=== PATIENT | male | born 1955 | race American Indian/Alaskan Native ===

== ENCOUNTER 2016-07-16 21:30 | Inpatient (IN) | payer OTHER ==
[2016-07-16] MEDS ORDERED: ASPIRIN PO ONE (21:39)
--- NOTE | 2016-07-16 21:44 | Emergency Department Report ---
ED Syncope HPI - General Stated Complaint: SEIZURE Time Seen by Provider: 07/16/16 21:36 - History of Present Illness Initial Comments: This is a pleasant 60-year-old gentleman brought in by EMS. He apparently had a syncopal episode while at the bar. He states he had too many to drink. The patient has no complaints otherwise at this point. Patient states he does have a seizure disorder. [facility]'s bystanders did indicate the patient did have some slight jerking movements when he was passing out. He was caught by a bystander. It helps gently to the floor. He was out for about 1-2 minutes according to bystanders. After coming back to he was alert and appropriate right away according to bystanders as well. States last seizure he had was approximately 8 years ago. He is not on any anti-epileptic medications. Patient does endorse a cardiac history. He denies ever having heart attack however. EMS do have ECG that questions whether there could be an anterior STEMI. Again patient has no chest Complaints whatsoever. - Related Data Allergies/Adverse Reactions: Allergies No Known Allergies Allergy (Verified 07/16/16 21:39) Home Medications: Ambulatory Orders No Known Home Medications [No Reported Home Medications] 07/16/16 ED Review of Systems ROS: Stated complaint: SEIZURE Other details as noted in HPI Comment: All other systems reviewed and negative Constitutional: denies: chills, fever Eyes: denies: eye pain, eye discharge, vision change ENT: denies: ear pain, throat pain Respiratory: denies: cough, shortness of breath, wheezing Cardiovascular: denies: chest pain, palpitations Endocrine: no symptoms reported Gastrointestinal: denies: abdominal pain, nausea, diarrhea Genitourinary: denies: urgency, dysuria Musculoskeletal: denies: back pain, joint swelling, arthralgia Skin: denies: rash, lesions Neurological: denies: headache, weakness, paresthesias Psychiatric: denies: anxiety, depression Hematological/Lymphatic: denies: easy bleeding, easy bruising ED Past Medical Hx - Past Medical History Previous Medical History?: Yes Hx Seizures: Yes (not taking meds) - Medications Home Medications: Home Medications Medication Instructions Recorded Confirmed Last Taken Type No Known Home Medications [No 07/16/16 07/16/16 Unknown History Reported Home Medications] ED Physical Exam - General Limitations: Altered Mental Status General appearance: alert, in no apparent distress - Head Head exam: Present: atraumatic, normocephalic - Eye Eye exam: Present: normal appearance, EOMI. Absent: scleral icterus - ENT ENT exam: Present: normal exam, mucous membranes moist, other - Neck Neck exam: Present: normal inspection, full ROM (no oral lesions. No tongue lesions.). Absent: tenderness, meningismus, lymphadenopathy - Respiratory Respiratory exam: Present: normal lung sounds bilaterally. Absent: respiratory distress, wheezes, rales - Cardiovascular Cardiovascular Exam: Present: regular rate, normal rhythm. Absent: systolic murmur, diastolic murmur, rubs, gallop - GI/Abdominal GI/Abdominal exam: Present: soft, normal bowel sounds. Absent: tenderness, guarding - Rectal Rectal exam: Present: deferred - Extremities Exam Extremities exam: Present: normal inspection. Absent: tenderness - Back Exam Back exam: Present: normal inspection. Absent: CVA tenderness (R), CVA tenderness (L), vertebral tenderness - Neurological Exam Neurological exam: Present: alert, oriented X3, other - Psychiatric Psychiatric exam: Present: normal affect, normal mood - Skin Skin exam: Present: warm, dry, intact, normal color. Absent: rash ED Course Vital Signs 07/16/16 07/16/16 07/16/16 21:34 21:40 21:42 Temperature 97.6 F 97.6 F 97.6 F Pulse Rate 82 82 81 Respiratory 18 18 Rate Blood Pressure 154/83 Blood Pressure 154/83 [Left] Blood Pressure 152/83 [Right] O2 Sat by Pulse 95 95 95 Oximetry 07/16/16 22:46 Temperature Pulse Rate Respiratory 20 Rate Blood Pressure Blood Pressure [Left] Blood Pressure [Right] O2 Sat by Pulse 99 Oximetry - Reevaluation(s) Reevaluation #1: 07/16/16 21:54 ECG at 2132 with sinus rhythm at 79 bpm with a normal CA noted QRS is noted as well. Normal axis is noted. Does have some anterior ST elevation in V2 V3 without reciprocal change. This is somewhat J-point in nature as well. No ECG to compare to. Reevaluation #2: 07/16/16 23:23 Labs are unremarkable in general. Alcohol is elevated 0.11. Brother is at the bedside. Patient in no distress. He states he feels very comfortable. He has no chest pain. Brother states that the baby brother brother states that the patient is acting at his baseline. The brother endorses more of a seizure presentation. Is not clear to me exactly what the ultimate initial presentation was though the patient did not have any postictal phase. Apparently. I did speak with Dr. Greene regarding the abnormal ECG. His suggestion was to keep the patient in the hospital continue enzymes and stress in the morning. I feel this is appropriate as well as patient has no chest pain at this time it doesn't seem like cardiac or patient at this time. I did speak with hospitalist for admission. ED Medical Decision Making - Lab Data Result diagrams: 07/16/16 21:54 07/16/16 21:54 - Radiology Data interpreted by me: negative Critical care attestation.: If time is entered above; I have spent that time in minutes in the direct care of this critically ill patient, excluding procedure time. ED Disposition Clinical Impression: Seizure Syncope Qualifiers: Syncope type: unspecified Qualified Code(s): R55 - Syncope and collapse Disposition: OP ADMITTED IP TO THIS HOSP Is pt being admited?: Yes Does the pt Need Aspirin: No Condition: Stable Instructions: Syncope (ED) Time of Disposition: 23:22
[2016-07-16 22:25] LABS: Basophils % (Auto) 0.9 % (0.0-1.8); Eosinophils % (Auto) 1.6 % (0.0-4.3); Hematocrit 45.1 % (35.5-45.6); Hemoglobin 14.6 gm/dl (11.8-15.2); Mean Corpuscular HGB Conc 32 % (32-34); Mean Corpuscular Hemoglobin 26 pg (28-32); Mean Corpuscular Volume 82 fl (84-94); Platelet Count 195 K/mm3 (140-440); Red Blood Count 5.51 M/mm3 (3.65-5.03); White Blood Count 6.7 K/mm3 (4.5-11.0)
[2016-07-16 22:29] LABS: Alanine Aminotransferase 26 units/L (7-56); Albumin/Globulin Ratio 1.1 %; Alkaline Phosphatase 79 units/L (35-129); BUN/Creatinine Ratio 7.14; Bilirubin,Total 0.2 mg/dL (0.1-1.2); Blood Urea Nitrogen 10 mg/dL (9-20); Calcium 9.2 mg/dL (8.4-10.2); Carbon Dioxide 23 mmol/L (22-30); Glucose 108 mg/dL (75-100); Total Protein 7.7 g/dL (6.3-8.2)
[2016-07-16 22:30] LABS: Anion Gap 20 mmol/L; Chloride 100.3 mmol/L (98-107); Potassium 3.3 mmol/L (3.6-5.0); Sodium 140 mmol/L (137-145)
--- NOTE | 2016-07-16 23:58 | History and Physical Report ---
History of Present Illness Date of examination: 07/16/16 History of present illness: 60 year old man history of hypertension comes emergency room because while he was standing , drinking tonight, he had a syncopal episode. It's unclear how long it lasted for. Per the emergency room physician, the brother states that the patient had some jerking movements. Patient denies chest pain, palpitation, shortness of breath, cough, abdominal pain, hematochezia, dysuria, frequency, focal weakness, dysarthria, fever chills , polydipsia polyuria, hot or cold intolerance, easy bruisability, or rash or bleeding from mucosal membrane, rhinorrhea, epistaxis, earache, tinnitus, blurry vision, eye discharge, anxiety, depression. Other review of systems negative PAST SURGICAL HISTORY: None SOCIAL HISTORY: Smoke a pack a day, drinks 6 beers a day, no drugs FAMILY HISTORY:Hypertension Medications and Allergies Allergies Allergy/AdvReac Type Severity Reaction Status Date / Time No Known Allergies Allergy Verified 07/16/16 21:39 Home Medications Medication Instructions Recorded Confirmed Last Taken Type Metoprolol [Lopressor TAB] 25 mg PO BID #30 tablet 07/17/16 Unknown Rx Acetaminophen [Acetaminophen TAB] 325 mg PO Q4H PRN #30 tablet 07/18/16 Unknown Rx Carvedilol [Coreg] 25 mg PO BID tablet 07/18/16 Unknown Rx Famotidine [Pepcid] 20 mg PO QDAY #30 tablet 07/18/16 Unknown Rx Folic Acid [Folvite] 1 mg PO DAILY #30 tablet 07/18/16 Unknown Rx Multivitamin Tab [Multiple Vitamin 1 each PO DAILY #30 tablet 07/18/16 Unknown Rx TAB (Theragran)] Thiamine [Vitamin B-1] 100 mg PO QDAY #30 tablet 07/18/16 Unknown Rx hydrALAZINE [Apresoline TAB] 50 mg PO BID #60 tablet 07/18/16 Unknown Rx Exam - Physical Exam Narrative exam: Gen. appearance: Patient lying in bed, no apparent distress HEENT: Normocephalic, atraumatic, pupils equally round and reactive to light, extraocular movement intact, and no sclericterus,. No JVD or thyromegaly or nodule,neck supple, no carotid bruit ,mucous membranes moist, no exudate or erythema Heart: S1, S2, regular rate and rhythm Lungs: Clear to auscultation bilaterally, breathing comfortable Abdomen: Positive bowel sounds, nontender, nondistended, no organomegaly Extremity: No edema, cyanosis, clubbing Skin: No rash, nodules, warm, dry Neuro: Oriented 3, cranial nerves II-12 intact, speech is fluent, motor and sensory intact - Constitutional Vitals: Temp Pulse Resp BP Pulse Ox 97.6 F 81 20 152/83 99 07/16/16 21:42 07/16/16 21:42 07/16/16 22:46 07/16/16 21:42 07/16/16 22:46 Results - Labs CBC & Chem 7: 07/18/16 03:43 07/18/16 03:43 Labs: Abnormal lab results 07/16/16 07/16/16 07/16/16 Range/Units 21:54 21:54 21:54 RBC 5.51 H (3.65-5.03) M/mm3 MCV 82 L (84-94) fl MCH 26 L (28-32) pg RDW 16.0 H (13.2-15.2) % Lymph % (Auto) 41.1 H (13.4-35.0) % [place] % (Auto) 8.9 H (0.0-7.3) % Potassium 3.3 L (3.6-5.0) mmol/L Glucose 108 H (75-100) mg/dL Plasma/Serum Alcohol 0.11 H (0-0.07) gm% - Imaging and Cardiology EKG: image reviewed Chest x-ray: image reviewed Assessment and Plan Syncope vs EKG seizure with abnormal ekg Hypertension Alcohol abuse Admit to medicine Check cardiac enzymes, d-dimer, consult cardiolgy Start ativan as needed for seizure Start dvt prophalaxis
[2016-07-16] MEDS ORDERED: TYLENOL PO PRN (23:59)
[2016-07-16] MEDS ORDERED: MILK OF MAGNESIA PO PRN (23:59)
[2016-07-16] MEDS ORDERED: ZOFRAN IV PRN (23:59)
[2016-07-16] MEDS ORDERED: DULCOLAX PR PRN (23:59)
[2016-07-17] MEDS ORDERED: ATIVAN IV PRN (00:26)
[2016-07-17 00:59] LABS: Creatine Kinase MB 3.6 ng/mL (0.0-4.0)
[2016-07-17 01:01] LABS: Creatine Kinase 192 units/L (55-170)
[2016-07-17 06:17] LABS: Creatine Kinase MB 3.6 ng/mL (0.0-4.0)
[2016-07-17 06:18] LABS: Creatine Kinase 193 units/L (55-170)
--- NOTE | 2016-07-17 09:49 | XRay Report ---
AP CHEST: HISTORY: chest pain AP view of the chest demonstrates a normal mediastinal and cardiac contour with clear lungs. Moderate to severe dextroscoliosis of the thoracic spine is noted. No acute bony abnormality. IMPRESSION: No acute process. Scoliosis.
[2016-07-17] MEDS ORDERED: APRESOLINE IV ONE (10:22)
--- NOTE | 2016-07-17 10:25 | Discharge Summary ---
Providers - Providers Date of Admission: 07/16/16 23:54 Date of discharge: 07/17/16 Attending physician: GIOVANNI AC MD 07/16/16 23:59 Consult to Physician [CONS] Routine Consulting Provider: BREEZY NGUYỄN Reason For Exam: syncope Place consult to:: Dr. Nguyễn Notified:: Tanya HARRINGTON Phone number called:: Was contact made?: Yes If yes, spoke with:: [facility] Time called:: 08:03 Primary care physician: CHIEF CLERK SHELTER Hospitalization Condition: Stable Exam - Constitutional Vitals: Temp Pulse Resp BP Pulse Ox 98.2 F 78 18 212/118 94 07/17/16 08:00 07/17/16 08:00 07/17/16 08:00 07/17/16 08:00 07/17/16 08:00 Plan Activity: no driving until cleared by PCP (according to [place] state law. needs to be evaluated by Neurologist before driving. MUST BE SEIZURE FREE FOR 6 MONTHS), fall precautions Diet: low salt Special Instructions: record daily BP diary Additional Instructions: must avoid etoh. must enroll in an etoh treatment program Follow up with: KYAW NGUYỄN MD [Staff Physician] - 7 Days PRIMARY CARE, [Primary Care Provider] - 3-5 Days MEGHNA LARSEN MD [Staff Physician] - 7 Days Prescriptions: Metoprolol [Lopressor TAB] 25 mg PO BID #30 tablet
[2016-07-17] MEDS: LOVENOX SUB-Q SCH (10:41)
[2016-07-17] MEDS ORDERED: LOPRESSOR PO SCH (11:00)
--- NOTE | 2016-07-17 12:45 | Consultation ---
History of Present Illness Consult date: 07/17/16 Medications and Allergies Allergies Allergy/AdvReac Type Severity Reaction Status Date / Time No Known Allergies Allergy Verified 07/16/16 21:39 Home Medications Medication Instructions Recorded Confirmed Last Taken Type Metoprolol [Lopressor TAB] 25 mg PO BID #30 tablet 07/17/16 Unknown Rx Active Meds: Active Medications Acetaminophen (Tylenol) 650 mg PO Q4H PRN PRN Reason: Pain MILD(1-3)/Fever >100.5/GASPAR Bisacodyl (Dulcolax) 10 mg CO QDAY PRN PRN Reason: Constipation unrelieved by MOM Carvedilol (Coreg) 25 mg PO BID MARIAH Enoxaparin Sodium (Lovenox) 40 mg SUB-Q QDAY MARIAH Last Admin: 07/17/16 10:41 Dose: 40 mg Nicardipine/Sodium Chloride (Cardene Drip 40 Mg/200 Ml) 40 mg in 200 mls @ 25 mls/hr IV TITR MARIAH; 5 MG/HR PRN Reason: Protocol Folic Acid 1 mg/ Multivitamins /Minerals 10 ml/ Thiamine HCl 100 mg/ Sodium Chloride 1,000 mls @ 125 mls/hr IV .BY DURATION MARIAH Sodium Chloride (Nacl 0.9% 1000 Ml) 1,000 mls @ 125 mls/hr IV .BY DURATION MARIAH Lorazepam (Ativan) 2 mg IV Q4H PRN PRN Reason: Seizures Magnesium Hydroxide (Milk Of Magnesia) 30 ml PO Q4H PRN PRN Reason: Constipation Ondansetron HCl (Zofran) 4 mg IV Q8H PRN PRN Reason: N/V unrelieved by Reglan Potassium Chloride (K-Dur) 40 meq PO ONCE ONE Stop: 07/17/16 13:01 Physical Examination Vital Signs Temp Pulse BP Pulse Ox 97.6 F 82 154/83 95 07/16/16 21:34 07/16/16 21:34 07/16/16 21:34 07/16/16 21:34 Results 07/16/16 21:54 07/16/16 21:54 Cardiac Enzymes 07/17/16 07/17/16 Range/Units 00:22 05:20 CK-MB (CK-2) 3.6 3.6 (0.0-4.0) ng/mL Assessment and Plan Detailed Cardiology consult dictated.
[2016-07-17] MEDS ORDERED: K-DUR PO ONE (13:00)
[2016-07-17] MEDS ORDERED: CARDENE DRIP 40 MG/200 ML 40 MG/200 ML BAG IV SCH (13:00)
[2016-07-17] MEDS: COREG PO SCH ×2 (13:06→22:48)
[2016-07-17] MEDS: 1: FOLVITE 1 MG, INFUVITE 10 ML, VITAMIN B-1 100 MG in NACL 0.9% 1000 ML 988.8 ML 2: NA IV SCH ×2 (13:37→22:30)
--- NOTE | 2016-07-17 16:29 | Progress Note ---
Assessment and Plan Assessment and plan: 60 year old man history of hypertension comes emergency room because while he was standing, drinking tonight, he had a syncopal episode. It's unclear how long it lasted for. Per the emergency room physician, the brother states that the patient had some jerking movements. Patient was noted to have elevated BP and not responding despite multiple treatment for BP requiring transfer to [facility]. * Hypertensive emergency * Alcohol abuse * Alcohol withdrawal syndrom * Hypokalemia * Microcytosis Plan: * Transfer to ICU for cardene drip * start CIWA protocol * Replace electrolytes * seizure precautions * DVT/GI prophylaxis * Extensive counselling provided for etoh cessation, 15 mins spent on counselling, patient verbalized understanding * Intensivit consult * Plan discussed with patient, and care team. * critical care time 35 mins. History Interval history: Patient seen and examined in no acute distress. showing some signs of mild withdrawal. denies any chest pain, nausea, vomiting. Hospitalist Physical - Physical exam Narrative exam: VITAL SIGNS: Reviewed. GENERAL: The patient appeared well nourished and normally developed. Vital signs as documented. HEAD: No signs of head trauma. EYES: Pupils are equal. Extraocular motions intact. EARS: Hearing grossly intact. MOUTH: Oropharynx is normal. NECK: No adenopathy, no JVD. CHEST: Chest with clear breath sounds bilaterally. No wheezes, rales, or rhonchi. CARDIAC: Regular rate and rhythm. S1 and S2, without murmurs, gallops, or rubs. VASCULAR: No Edema. Peripheral pulses normal and equal in all extremities. ABDOMEN: Soft, without detectable tenderness. No sign of distention. No rebound or guarding, and no masses palpated. Bowel Sounds normal. MUSCULOSKELETAL: Good range of motion of all major joints. Extremities without clubbing, cyanosis or edema. NEUROLOGIC EXAM: Alert and oriented x 3. fine tremor, No focal sensory or strength deficits. Speech normal. Follows commands. PSYCHIATRIC: Mood normal. SKIN: No rash or lesions. - Constitutional Vitals: Temp Pulse Resp BP Pulse Ox 98.3 F 87 20 160/93 95 07/17/16 15:30 07/17/16 15:30 07/17/16 15:30 07/17/16 15:30 07/17/16 15:30 Results - Labs CBC & Chem 7: 07/16/16 21:54 07/16/16 21:54 Labs: Laboratory Last Values WBC 6.7 K/mm3 (4.5-11.0) 07/16/16 21:54 RBC 5.51 M/mm3 (3.65-5.03) H 07/16/16 21:54 Hgb 14.6 gm/dl (11.8-15.2) 07/16/16 21:54 Hct 45.1 % (35.5-45.6) 07/16/16 21:54 MCV 82 fl (84-94) L 07/16/16 21:54 MCH 26 pg (28-32) L 07/16/16 21:54 MCHC 32 % (32-34) 07/16/16 21:54 RDW 16.0 % (13.2-15.2) H 07/16/16 21:54 Plt Count 195 K/mm3 (140-440) 07/16/16 21:54 Lymph % (Auto) 41.1 % (13.4-35.0) H 07/16/16 21:54 [place] % (Auto) 8.9 % (0.0-7.3) H 07/16/16 21:54 Eos % (Auto) 1.6 % (0.0-4.3) 07/16/16 21:54 Baso % (Auto) 0.9 % (0.0-1.8) 07/16/16 21:54 Lymph # 2.8 K/mm3 (1.2-5.4) 07/16/16 21:54 [place] # 0.6 K/mm3 (0.0-0.8) 07/16/16 21:54 Eos # 0.1 K/mm3 (0.0-0.4) 07/16/16 21:54 Baso # 0.1 K/mm3 (0.0-0.1) 07/16/16 21:54 Seg Neutrophils % 47.5 % (40.0-70.0) 07/16/16 21:54 Seg Neutrophils # 3.2 K/mm3 (1.8-7.7) 07/16/16 21:54 D-Dimer < 135 ng/mlDDU (0-234) 07/17/16 00:22 Sodium 140 mmol/L (137-145) 07/16/16 21:54 Potassium 3.3 mmol/L (3.6-5.0) L 07/16/16 21:54 Chloride 100.3 mmol/L (98-107) 07/16/16 21:54 Carbon Dioxide 23 mmol/L (22-30) 07/16/16 21:54 Anion Gap 20 mmol/L 07/16/16 21:54 BUN 10 mg/dL (9-20) 07/16/16 21:54 Creatinine 1.4 mg/dL (0.8-1.5) 07/16/16 21:54 Estimated GFR > 60 ml/min 07/16/16 21:54 BUN/Creatinine Ratio 7.14 % 07/16/16 21:54 Glucose 108 mg/dL (75-100) H 07/16/16 21:54 Calcium 9.2 mg/dL (8.4-10.2) 07/16/16 21:54 Total Bilirubin 0.2 mg/dL (0.1-1.2) 07/16/16 21:54 AST 23 units/L (5-40) 07/16/16 21:54 ALT 26 units/L (7-56) 07/16/16 21:54 Alkaline Phosphatase 79 units/L (35-129) 07/16/16 21:54 Total Creatine Kinase 193 units/L (55-170) H 07/17/16 05:20 CK-MB (CK-2) 3.6 ng/mL (0.0-4.0) 07/17/16 05:20 CK-MB (CK-2) Rel Index 1.8 (0-4) 07/17/16 05:20 Troponin T < 0.010 ng/mL (0.00-0.029) 07/17/16 05:20 Total Protein 7.7 g/dL (6.3-8.2) 07/16/16 21:54 Albumin 4.0 g/dL (3.9-5) 07/16/16 21:54 Albumin/Globulin Ratio 1.1 % 07/16/16 21:54 Plasma/Serum Alcohol 0.11 gm% (0-0.07) H 07/16/16 21:54
--- NOTE | 2016-07-17 21:10 | Consultation ---
History of Present Illness Consult date: 07/17/16 Requesting physician: GIOVANNI AC Reason for consult: other (Hypertensive Urgency) History of present illness: PULMONARY/CCM CONSULT NOTE (Full dictation # [id number]) Please see dictated notes for full details A&P: Uncontrolled HTN - admit to ICU for IV cardene - schedule and titrate oral meds Medications and Allergies Allergies Allergy/AdvReac Type Severity Reaction Status Date / Time No Known Allergies Allergy Verified 07/16/16 21:39 Home Medications Medication Instructions Recorded Confirmed Last Taken Type Metoprolol [Lopressor TAB] 25 mg PO BID #30 tablet 07/17/16 Unknown Rx Active Meds: Active Medications Acetaminophen (Tylenol) 650 mg PO Q4H PRN PRN Reason: Pain MILD(1-3)/Fever >100.5/GASPAR Bisacodyl (Dulcolax) 10 mg ME QDAY PRN PRN Reason: Constipation unrelieved by MOM Carvedilol (Coreg) 25 mg PO BID [facility] Last Admin: 07/17/16 13:06 Dose: 25 mg Enoxaparin Sodium (Lovenox) 40 mg SUB-Q QDAY [facility] Last Admin: 07/17/16 10:41 Dose: 40 mg Nicardipine/Sodium Chloride (Cardene Drip 40 Mg/200 Ml) 40 mg in 200 mls @ 25 mls/hr IV TITR MARIAH; 5 MG/HR PRN Reason: Protocol Last Admin: 07/17/16 18:05 Dose: 5 mg/hr, 25 mls/hr Folic Acid 1 mg/ Multivitamins /Minerals 10 ml/ Thiamine HCl 100 mg/ Sodium Chloride 1,000 mls @ 125 mls/hr IV .BY DURATION [facility] Last Admin: 07/17/16 13:37 Dose: 125 mls/hr Sodium Chloride (Nacl 0.9% 1000 Ml) 1,000 mls @ 125 mls/hr IV .BY DURATION [facility] Lorazepam (Ativan) 2 mg IV Q4H PRN PRN Reason: Seizures Magnesium Hydroxide (Milk Of Magnesia) 30 ml PO Q4H PRN PRN Reason: Constipation Ondansetron HCl (Zofran) 4 mg IV Q8H PRN PRN Reason: N/V unrelieved by Reglan Physical Examination Vital signs: Vital Signs Temp Pulse BP Pulse Ox 97.6 F 82 154/83 95 07/16/16 21:34 07/16/16 21:34 07/16/16 21:34 07/16/16 21:34 Results - Laboratory Findings CBC and BMP: 07/16/16 21:54 07/16/16 21:54 PT/INR, D-dimer D-Dimer < 135 ng/mlDDU (0-234) 07/17/16 00:22 Abnormal lab findings: Abnormal Labs 07/17/16 07/17/16 00:22 05:20 Total Creatine Kinase 192 H 193 H
--- NOTE | 2016-07-17 22:14 | Consultation ---
REFERRING PHYSICIAN: Candice Calderon MD HISTORY OF PRESENT ILLNESS: A 60-year-old thin built (BMI of 21) pleasant -[place] gentleman with a history of hypertension (not on any medications at home), seizures in the past, was admitted with an episode of syncope versus seizures. He sustained a syncopal episode when he was drinking in the bar. As per him, he had 2 minute drinks and suddenly he passed out. Before he could fall on the ground, one of the onlookers supported him and avoided the fall. The episode lasted 1-2 minutes and he came out of it. No history of urinary or bowel incontinence. Apparently, he had some jerky moments before he passed out. No history of chest pain, shortness of breath, diaphoresis, palpitations. Serial troponins are negative and myocardial infarction has been ruled out. CPKs were mildly increased; however, the MB fractions were negative. His EKG was \\" abnormal\\". His most recent blood pressure was 212/118 and the repeat one is 193/152 mmHg. No history of headache, nausea or vomiting. His D-dimer is less than 135. His BUN is 10, creatinine is 1.4, (history of CKD). He is mildly hypokalemic with potassium of 3.3. His serum alcohol level was 0.11. PAST MEDICAL HISTORY: The patient has hypertension, but he has not been taking any medications. It appears that he does not take care of himself. No history of any major surgery in the past. No history of CAD, myocardial infarction or CHF in the past. SOCIAL HISTORY: History of chronic alcoholic abuse for the past 30 years (he drinks approximately 6 beers per day). He has been a chronic smoker. He has been smoking 1 pack of cigarettes per day for the past 30 years. No history of drug abuse. FAMILY HISTORY: Negative for premature coronary artery disease. ALLERGIES: None known. MEDICATIONS: Metoprolol 12.5 mg p.o. b.i.d., Lovenox 40 mg subq daily. He was just started on intravenous Cardene infusion for control his blood pressure as he has accelerated hypertension. REVIEW OF SYSTEMS: CARDIOVASCULAR: As described in the history. RENAL: As described in the history. METABOLISM AND ENDOCRINOLOGY: As described in the history. Review of rest of the 10 systems is negative. PHYSICAL EXAMINATION: GENERAL: A 60-year-old thin built, pleasant -[place] gentleman. VITAL SIGNS: Pulse 114 per minute and regular, respirations 16 per minute. Most recent blood pressure 198/118 mmHg. NEUROLOGIC: He is alert and oriented x 3. HEENT: Negative. NECK: Supple, no JVD, no bruit, no thyromegaly. HEART: PMI shifted laterally and is forcible in nature, no palpable thrills. Auscultation of heart reveals S1, S2. Mildly tachycardic. S3 is loud. S4 is present, no S3. No murmur or rub is appreciated. EXTREMITIES: Peripheral pulses felt. No edema. LUNGS: Bilateral air entry good and equal. No bronchial breathing, no wheezing. ABDOMEN: Soft, benign. No organomegaly. SKIN: Negative. BONE AND JOINTS: Negative. LABORATORY DATA: As described in the history. Potassium 3.3, creatinine 1.4, sodium 140. CBC, platelet count within normal limits. Cardiac enzymes as described in the history. Serum alcohol level as described in the history. D-dimer as described in the history. EKG normal sinus rhythm, voltage criteria for left ventricular hypertrophy, possible inferior ischemia and J-point elevation in lead 1 V2 through V6. of early repolarization versus pericarditis. No evidence of acute ME. IMPRESSION: 1. Syncopal episode versus seizures. 2. Myocardial infarction ruled out. 3. Accelerated hypertension/hypertensive urgency. 4. Abnormal EKG. 5. History of noncompliance. 6. History of chronic cigarette smoking. 7. History of chronic alcoholic abuse. 8. Chronic kidney disease with creatinine of 1.4. RECOMMENDATIONS: 1. Blood pressure control -- to continue intravenous Cardene infusion. Target blood pressure 160/[address] him on p.o. antihypertensives. 3. Potassium supplements to keep potassium level around 4. 4. We will order echocardiogram to assess chamber dimensions and left ventricular function. 5. If the blood pressure is under control, he will go for a Lexiscan stress myocardial scan in the a.m. 6. We will also ask for a fasting lipid panel in the a.m. Thank you again, we will follow. JOB# [id number] [facility]
[2016-07-17] MEDS ORDERED: NACL 0.9% 1000 ML 1,000 ML ONE (22:41)
--- NOTE | 2016-07-18 00:07 | Consultation ---
CONSULTING PHYSICIAN: Yonatan Celis MD REASON FOR CONSULTATION: Uncontrolled hypertension, need for IV Cardene drip. CHIEF COMPLAINT AND HISTORY OF PRESENT ILLNESS: The patient is a 60-year-old -[place] man with history of hypertension, according to the records, he was drinking and standing yesterday when he had a syncopal episode, it is unclear how long it lasted. He was brought into the Emergency Room. They reported some jerking movements. He was evaluated in the Emergency Room and was a really negative review of systems. He does have a tobacco abuse history. Ultimately, blood pressures were reviewed and it showed that they were a little bit on the high side. He was admitted to the telemetry floor for acute coronary syndrome workout and to evaluate for seizures. However, on the telemetry floor, they could not keep his blood pressure under control, hence the request for IV Cardene. When I stopped by to see him, he was on the Cardene drip, just been started at 5 mg per hour. Systolic blood pressures were around 170s. He denied any acute chest pains. He denied any fevers, chills, nausea, or vomiting. That really is as much of the history of presentation as I have except to say he is a tobacco abuser, I could not quantify it. PAST MEDICAL HISTORY: Hypertension. PAST SURGICAL HISTORY: Denies. MEDICATIONS: He was on at the time I stopped by to see him, according to the medication administration record included the following: Tylenol 650 mg p.o. q.4h. p.r.n. mild fever, Coreg 25 mg p.o. b.i.d., Lovenox 40 mg subcutaneous daily. He was on a daily banana bag. Ativan 2 mg IV q.4h. p.r.n. seizures, nicardipine drip at 5 mg per hour, Zofran 4 mg IV q.8h. p.r.n. ALLERGIES: No known drug allergies. DIET: Well-built gentleman. Denies acute weight loss or gain in the preceding few weeks to months. FAMILY AND SOCIAL HISTORY: There is a family history of hypertension. He does drink 6 beers a day. They denied IV drug use and apparently, he has a pack a day smoking habit. It is unclear how long he has been smoking. This is based on the records. REVIEW OF SYSTEMS: No loss of consciousness since he has been here, no new-onset seizures, no gross hematochezia or melena, no gross hematuria. He denies dysuria. No hematemesis. No hemoptysis. No palpitations. Complete review of systems obtained. Pertinent positives and/or negatives as in body of history above, otherwise noncontributory. PHYSICAL EXAMINATION: VITAL SIGNS: At presentation, he was afebrile, temperature 97.6, pulse was 82, respiratory rate was 18, blood pressure was 154/83, oxygen sats were 95%, inspired oxygen concentration was not recorded, blood pressure was as high as 212/118. HEAD, EYES, EARS, NOSE, AND THROAT: Pupils are equal, round, about 4 mm, reactive to light. Extraocular muscle movements are intact. Grossly, no palpable lymph nodes in the supraclavicular or submandibular lymph node chains. LUNGS: Auscultation of both lung [place] were unremarkable. Lungs were clear bilaterally. HEART: Heart sounds 1 and 2 are heard, regular rate and rhythm at the time of my evaluation. ABDOMEN: Soft, full, bowel sounds are positive, nontender. EXTREMITIES: Without overt digital clubbing, cyanosis, or pedal edema. NEUROLOGIC: The exam is grossly nonfocal. LABORATORY DATA: From my review are as follows: White cell count 6700, hemoglobin 14.6, hematocrit 45.1, platelet count 195. D-dimer was unremarkable within normal limits. Serum sodium 140, potassium 3.3, chloride 100, bicarbonate 23, BUN 10, creatinine 1.4, glucose 108. Cardiac enzymes, troponin within normal limits. Liver function tests unremarkable. Serum alcohol level was elevated at 0.11. Radiographic studies were done. I am pulling up the film. I have reviewed the radiologist's interpretation and he describes scoliosis without any acute processes, I have reviewed and I do agree with that. ASSESSMENT AND PLAN: We have a middle-aged gentleman with uncontrolled hypertension, which may also have been responsible for his syncopal episode. He will be admitted to the Intensive Care Unit for a Cardene drip. I would suggest that they introduce oral medications to control those. watched for delirium tremens. I will put him on GI prophylaxis. He is on DVT prophylaxis. Flu and pneumonia vaccination will be per protocol. Thank you very much for the consult. We will follow along and make further recommendations as picture progresses/becomes clearer. JOB# [id number] MIGUEL/CELIA
[2016-07-18 04:26] LABS: Basophils % (Auto) 0.7 % (0.0-1.8); Eosinophils % (Auto) 2.7 % (0.0-4.3); Hematocrit 48.1 % (35.5-45.6); Hemoglobin 15.2 gm/dl (11.8-15.2); Mean Corpuscular HGB Conc 32 % (32-34); Mean Corpuscular Volume 81 fl (84-94); Platelet Count 180 K/mm3 (140-440); Red Blood Count 5.97 M/mm3 (3.65-5.03); Red Cell Distribution Width 16.1 % (13.2-15.2); White Blood Count 6.5 K/mm3 (4.5-11.0)
[2016-07-18 04:38] LABS: Mean Corpuscular Hemoglobin 25 pg (28-32)
[2016-07-18 04:48] LABS: Anion Gap 17 mmol/L; BUN/Creatinine Ratio 12.22; Blood Urea Nitrogen 11 mg/dL (9-20); Calcium 8.7 mg/dL (8.4-10.2); Carbon Dioxide 23 mmol/L (22-30); Chloride 101.5 mmol/L (98-107); Glucose 93 mg/dL (75-100); Sodium 137 mmol/L (137-145)
[2016-07-18 04:50] LABS: Potassium 4.2 mmol/L (3.6-5.0)
--- NOTE | 2016-07-18 09:31 | Admit Criteria Form ---
Admission Criteria Documentation: SYNCOPE Clinical Indications for Admission to Inpatient Care ( Place 'X' for any and all applicable criteria): Admission is indicated for syncope and ANY ONE of the following (1)(2)(3)(4)(5) (6)(7) : [X]I. Inpatient admission required rather than observation care (Also use Syncope: Observation Care Criteria as appropriate) because of ANY ONE of the following: [ ]a) Hemodynamic instability that is severe or persistent [ ]b) Cardiac arrhythmias of immediate concern identified or strongly suspected (eg, needs electrophysiologic study) [ ]c) Acute coronary syndrome identified (Also use Myocardial Infarction or Angina Criteria form ) [ ]d) Structural cardiac disorder (eg, aortic stenosis) suspected as cause that requires immediate correction [ ]e) Respiratory symptoms (eg, dyspnea, tachypnea) that are severe or persistent [X]f) Neurologic signs or symptoms that are severe or persistent ( eg, stroke, seizures, altered mental status) [ ]g) Severe electrolyte abnormalities requiring inpatient care [ ]h) Supplemental oxygen or respiratory treatment for over 24 hrs that are performable only in acute inpatient setting [ ]i) IV fluid to replace significant ongoing (eg, for over 24 hrs ) losses (>3 L/m2 per day) [ ]j) Continuous intravenous infusion of anticoagulation, platelet inhibitor, vasoactive, or antiarrhythmic medication(15)(16) [ ]k) Pulmonary artery catheter monitoring [ ]l) Temporary pacemaker placement(17) [ ]m) Emergent cardioversion(18) [ ]n) Other conditions, treatment or monitoring requiring inpatient admission [ ]II. Suspicion of imminently dangerous cause (eg, rare causes like pericardial tamponade, pulmonary embolism) [ ]III. Syncope causing severe injury requiring hospitalization Extended stay beyond goal length of stay may be needed for(28) [ ]a) Dangerous arrhythmia(15)(23)(27)(29) [ ]b) Myocardial ischemia [ ]c) Seizure disorder [ ]d) Syncope-related injuries The original [employer] [facility] content created by [employer] has been revised. The portions of the content which have been revised are identified through the use of italic text or in bold, and [employer] has neither reviewed nor approved the modified material. All other unmodified content is copyright [employer] [facility] [employer]. Please see references footnoted in the original [facility] edition 2016 Admission Criteria Met: Yes
--- NOTE | 2016-07-18 10:41 | Progress Note ---
Assessment and Plan Assessment: Syncope v. seizure Accelerated HTN Abnormal EKG / pericarditis - pt denies chest pain, troponins negative for AMI x 3 sets. CKD Tobacco use / ETOH use - cessation encouraged. Plan: Repeat 12-lead EKG consistent with pericarditis. AMI ruled out. Initiate hydralazine, 50mg PO BID. Cont coreg. Post-pone stress test d/t elevated BPs and plan for lexiscan MPI tomorrow AM pending BP is optimized. Await echo. The patient has been seen in conjunction with Dr. Margaret Greene who agrees with the assessment and plan of care. Subjective Date of service: 07/18/16 Principal diagnosis: syncope Interval history: Pt resting comfortably in bed, no complaints. BPs elevated, weaned off cardene gtt overnight. Pt has bee NPO since HI for possible lexiscan MPI stress test this AM. Objective Last Vital Signs Temp 98 F 07/18/16 08:00 Pulse 64 07/18/16 08:20 Resp 19 07/18/16 08:20 BP 163/103 07/18/16 08:20 Pulse Ox 94 07/18/16 08:20 - Physical Examination General: Appears Well, No Apparent Distress HEENT: Positive: PERRL, Normocephaly, Mucus Membranes Moist Neck: Positive: neck supple, trachea midline Cardiac: Positive: Reg Rate and Rhythm, S1/S2 Lungs: Positive: Normal Exam, clear to auscultation, Normal Breath Sounds Neuro: Positive: Grossly Intact, Cranial Nerve 2-12 Intact Abdomen: Positive: Unremarkable, Soft, Active Bowel Sounds. Negative: Tender Skin: Positive: Clear. Negative: Rash, Wound Musculoskeletal: No Fluid Collection, No Pain, Normal Range of Motion Extremities: Present: normal, upper extr. pulses, lower extr. pulses. Absent: edema - Labs and Meds Lipids 07/18/16 Range/Units 03:43 Triglycerides 189 H (2-149) mg/dL Cholesterol 147 (50-199) mg/dL HDL Cholesterol 27 L (40-59) mg/dL Cholesterol/HDL Ratio 5.44 % CBC 07/18/16 Range/Units 03:43 WBC 6.5 (4.5-11.0) K/mm3 RBC 5.97 H (3.65-5.03) M/mm3 Hgb 15.2 (11.8-15.2) gm/dl Hct 48.1 H (35.5-45.6) % Plt Count 180 (140-440) K/mm3 Lymph # 1.9 (1.2-5.4) K/mm3 [place] # 0.4 (0.0-0.8) K/mm3 Eos # 0.2 (0.0-0.4) K/mm3 Baso # 0.0 (0.0-0.1) K/mm3 Comprehensive Metabolic Panel 07/18/16 Range/Units 03:43 Sodium 137 (137-145) mmol/L Potassium 4.2 D (3.6-5.0) mmol/L Chloride 101.5 (98-107) mmol/L Carbon Dioxide 23 (22-30) mmol/L BUN 11 (9-20) mg/dL Creatinine 0.9 (0.8-1.5) mg/dL Glucose 93 (75-100) mg/dL Calcium 8.7 (8.4-10.2) mg/dL - Imaging and Cardiology EKG: report reviewed, image reviewed - Telemetry EKG Rhythm: Sinus Rhythm
[2016-07-18] MEDS: FOLVITE PO SCH (11:22)
[2016-07-18] MEDS: THERAGRAN Tab PO SCH (11:22)
[2016-07-18] MEDS: PEPCID PO SCH (11:24)
[2016-07-18] MEDS: LOVENOX SUB-Q SCH (11:24)
[2016-07-18] MEDS: COREG PO SCH ×2 (11:24→21:35)
[2016-07-18] MEDS: VITAMIN B-1 PO SCH (11:25)
[2016-07-18] MEDS ORDERED: APRESOLINE PO SCH (12:00)
--- NOTE | 2016-07-18 12:58 | Progress Note ---
Assessment and Plan - Patient Problems (1) Hypertensive emergency without congestive heart failure Current Visit: Yes Status: Acute Plan to address problem: Initiate oral antihypertensive medications and monitor. (2) Syncope Current Visit: Yes Status: Acute Qualifiers: Syncope type: unspecified Encounter type: E Qualified Code(s): R55 - Syncope and collapse Plan to address problem: Continue with monitoring. Follow up 2D echocardiogram. (3) Seizure Current Visit: Yes Status: Acute Plan to address problem: No further episodes of seizure. Continue to monitor (4) Tobacco abuse disorder Current Visit: Yes Status: Acute Plan to address problem: Nicotine withdrawal precautions. Smoking cessation counselling done at the bedside (5) Alcohol abuse Current Visit: Yes Status: Acute Plan to address problem: Alcohol withdrawal precautions. Monitor for DTs. Substance abuse counselling Subjective Date of service: 07/11/16 Principal diagnosis: syncope Interval history: No acute events this morning. Has been NPO for possible lexiscan today. Stat EKG was done by cardiology service- consistent with pericarditis, stress test cancelled for now. Patient was seen and examined. Vitals, labs, medications, chart reviewed. Objective - Exam Narrative Exam: VITAL SIGNS: Reviewed. GENERAL: The patient chronically ill looking and normally developed. Vital signs as documented. HEAD: No signs of head trauma. EYES: Pupils are equal. Extraocular motions intact. EARS: Hearing grossly intact. MOUTH: Oropharynx is normal. NECK: No adenopathy, no JVD. CHEST: Chest with clear breath sounds bilaterally. No wheezes, rales, or rhonchi. CARDIAC: Regular rate and rhythm. S1 and S2, without murmurs, gallops, or rubs. VASCULAR: No Edema. Peripheral pulses normal and equal in all extremities. ABDOMEN: Soft, without detectable tenderness. No sign of distention. No rebound or guarding, and no masses palpated. Bowel Sounds normal. MUSCULOSKELETAL: Good range of motion of all major joints. Extremities without clubbing, cyanosis or edema. NEUROLOGIC EXAM: Alert and oriented x 3. fine tremor, No focal sensory or strength deficits. Speech normal. Follows commands. PSYCHIATRIC: Mood normal. SKIN: No rash or lesions. Vital Signs - 12hr 07/18/16 07/18/16 07/18/16 01:00 01:10 01:20 Temperature Pulse Rate 75 82 72 Pulse Rate [ Apical] Respiratory 17 9 L 17 Rate Blood Pressure 135/78 135/78 135/78 O2 Sat by Pulse 93 93 94 Oximetry 07/18/16 07/18/16 07/18/16 01:30 01:33 01:40 Temperature 98.1 F Pulse Rate 74 73 Pulse Rate [ Apical] Respiratory 15 14 Rate Blood Pressure 131/75 131/75 O2 Sat by Pulse 96 94 Oximetry 07/18/16 07/18/16 07/18/16 01:50 02:00 02:10 Temperature Pulse Rate 68 83 93 H Pulse Rate [ Apical] Respiratory 16 18 18 Rate Blood Pressure 131/75 131/75 134/76 O2 Sat by Pulse 95 95 92 Oximetry 07/18/16 07/18/16 07/18/16 02:20 02:30 02:40 Temperature Pulse Rate 72 76 71 Pulse Rate [ Apical] Respiratory 15 14 17 Rate Blood Pressure 134/76 142/92 142/92 O2 Sat by Pulse 94 95 93 Oximetry 07/18/16 07/18/16 07/18/16 02:50 03:00 03:10 Temperature Pulse Rate 69 68 88 Pulse Rate [ Apical] Respiratory 15 14 16 Rate Blood Pressure 142/92 147/83 147/83 O2 Sat by Pulse 94 94 95 Oximetry 07/18/16 07/18/16 07/18/16 03:20 03:30 03:40 Temperature Pulse Rate 72 78 74 Pulse Rate [ Apical] Respiratory 19 18 18 Rate Blood Pressure 147/83 156/85 156/85 O2 Sat by Pulse 96 94 94 Oximetry 07/18/16 07/18/16 07/18/16 03:50 04:00 04:10 Temperature 98.3 F Pulse Rate 69 67 68 Pulse Rate [ Apical] Respiratory 19 13 17 Rate Blood Pressure 156/85 161/90 161/90 O2 Sat by Pulse 94 94 95 Oximetry 07/18/16 07/18/16 07/18/16 04:20 04:30 04:40 Temperature Pulse Rate 64 71 69 Pulse Rate [ Apical] Respiratory 16 19 17 Rate Blood Pressure 161/90 155/87 155/87 O2 Sat by Pulse 95 94 95 Oximetry 07/18/16 07/18/16 07/18/16 04:50 05:00 05:01 Temperature 98.3 F Pulse Rate 72 67 Pulse Rate [ Apical] Respiratory 15 17 Rate Blood Pressure 155/87 154/93 O2 Sat by Pulse 95 95 Oximetry 07/18/16 07/18/16 07/18/16 05:10 05:20 05:30 Temperature Pulse Rate 69 69 69 Pulse Rate [ Apical] Respiratory 17 17 17 Rate Blood Pressure 154/93 154/93 157/97 O2 Sat by Pulse 94 94 94 Oximetry 07/18/16 07/18/16 07/18/16 05:40 05:50 06:00 Temperature Pulse Rate 65 64 68 Pulse Rate [ Apical] Respiratory 16 15 15 Rate Blood Pressure 157/97 157/97 154/96 O2 Sat by Pulse 95 96 96 Oximetry 07/18/16 07/18/16 07/18/16 06:10 06:20 06:30 Temperature Pulse Rate 68 64 66 Pulse Rate [ Apical] Respiratory 13 16 16 Rate Blood Pressure 154/96 154/96 155/92 O2 Sat by Pulse 97 96 95 Oximetry 07/18/16 07/18/16 07/18/16 06:40 06:50 07:00 Temperature Pulse Rate 61 64 68 Pulse Rate [ Apical] Respiratory 15 16 16 Rate Blood Pressure 155/92 155/92 151/94 O2 Sat by Pulse 95 97 95 Oximetry 07/18/16 07/18/16 07/18/16 07:10 07:20 07:30 Temperature Pulse Rate 63 72 89 Pulse Rate [ Apical] Respiratory 16 13 15 Rate Blood Pressure 151/94 151/94 163/103 O2 Sat by Pulse 95 96 94 Oximetry 07/18/16 07/18/16 07/18/16 07:40 07:50 07:51 Temperature Pulse Rate 64 62 Pulse Rate [ Apical] Respiratory 16 15 Rate Blood Pressure 163/103 163/103 O2 Sat by Pulse 94 96 95 Oximetry 07/18/16 07/18/16 07/18/16 08:00 08:10 08:20 Temperature 98 F Pulse Rate 89 63 64 Pulse Rate [ 80 Apical] Respiratory 21 14 19 Rate Blood Pressure 163/103 163/103 163/103 O2 Sat by Pulse 94 96 94 Oximetry 07/18/16 07/18/16 07/18/16 08:30 08:40 08:50 Temperature Pulse Rate 76 63 67 Pulse Rate [ Apical] Respiratory 19 15 17 Rate Blood Pressure 173/96 173/96 173/96 O2 Sat by Pulse 96 95 94 Oximetry 07/18/16 07/18/16 07/18/16 09:00 09:05 09:10 Temperature Pulse Rate 65 70 65 Pulse Rate [ Apical] Respiratory 18 18 Rate Blood Pressure 163/92 163/92 O2 Sat by Pulse 96 95 Oximetry 07/18/16 07/18/16 07/18/16 09:20 09:30 09:40 Temperature Pulse Rate 62 62 60 Pulse Rate [ Apical] Respiratory 15 13 16 Rate Blood Pressure 163/92 164/93 164/93 O2 Sat by Pulse 95 95 94 Oximetry 07/18/16 07/18/16 07/18/16 09:50 10:00 10:10 Temperature Pulse Rate 62 86 59 L Pulse Rate [ Apical] Respiratory 15 16 16 Rate Blood Pressure 164/93 163/104 163/104 O2 Sat by Pulse 96 95 93 Oximetry 07/18/16 07/18/16 07/18/16 10:20 10:30 10:40 Temperature Pulse Rate 60 62 62 Pulse Rate [ Apical] Respiratory 19 16 19 Rate Blood Pressure 163/104 175/100 175/100 O2 Sat by Pulse 96 95 94 Oximetry 07/18/16 07/18/16 07/18/16 10:50 11:00 11:10 Temperature Pulse Rate 89 67 65 Pulse Rate [ Apical] Respiratory 19 22 20 Rate Blood Pressure 175/100 179/98 179/98 O2 Sat by Pulse 95 96 94 Oximetry 07/18/16 07/18/16 07/18/16 11:20 11:23 11:24 Temperature Pulse Rate 65 64 63 Pulse Rate [ Apical] Respiratory 18 Rate Blood Pressure 179/98 179/98 179/98 O2 Sat by Pulse 94 Oximetry 07/18/16 12:00 Temperature 98 F Pulse Rate Pulse Rate [ Apical] Respiratory Rate Blood Pressure O2 Sat by Pulse Oximetry CBC and BMP: 07/18/16 03:43 07/18/16 03:43 ABG, PT/INR, D-dimer: PT/INR, D-dimer D-Dimer < 135 ng/mlDDU (0-234) 07/17/16 00:22 Abnormal lab findings: Abnormal Labs 07/17/16 07/17/16 07/18/16 00:22 05:20 03:43 RBC 5.97 H Hct 48.1 H MCV 81 L MCH 25 L RDW 16.1 H Total Creatine Kinase 192 H 193 H Triglycerides HDL Cholesterol 07/18/16 03:43 RBC Hct MCV MCH RDW Total Creatine Kinase Triglycerides 189 H HDL Cholesterol 27 L Chest x-ray: report reviewed Allied health notes reviewed: nursing
[2016-07-18] MEDS ORDERED: APRESOLINE IV PRN (13:39)
--- NOTE | 2016-07-18 13:43 | Progress Note ---
Assessment and Plan Assessment and plan: Patient is a 60 year old man with a history of hypertension who presents to [facility] emergency room because of the syncopal episode associated with drinking alcohol. It's unclear how long it lasted for. Per the emergency room physician, the brother states that the patient had some jerking movements. Patient was noted to have elevated BP and not responding despite multiple treatment for BP requiring [facility]. Hypertensive emergency Alcohol abuse Alcohol withdrawal syndrome Hypokalemia Microcytosis Plan: Transfer to ICU for cardene drip start CIWA protocol Replace electrolytes seizure precautions DVT/GI prophylaxis Extensive counselling provided for etoh cessation, 15 mins spent on counselling, patient verbalized understanding Intensivit consult Plan discussed with patient, and care team. Disposition: Transfer from ICU hopefully discharge in a.m. History Interval history: Patient seen and examined. Follow up on hypertension which is improved. Currently off Cardene drip in ICU we'll transfer. Overnight uneventful. No cp, sob, n/v or severe headaches. Imaging, old records, testing, labs, nursing notes reviewed. Plan discussed with patient. Hospitalist Physical - Physical exam Narrative exam: GEN: WDWN, NAD, AWAKE, ALERT, ORIENTATED 3 HEENT: NCAT, PERRL, EOMI, OP CLEAR NECK: SUPPLE, NO THYROMEGALY, NO JVD, NO LAD CVS: RRR, NORMAL S1S2 LUNGS/CHEST: CTA B, NORMAL CHEST EXPANSION B, GOOD AIR ENTRY B ABD: SOFT NTND, GBS, NO REBOUND OR GUARDING EXT/SKIN: NO SIGNIFICANT EDEMA OR RASH MSK: FROM X 4 EXTREMITIES, significant contractures of his hands bilaterally, arthritis NEURO: CN 2-12 GROSSLY INTACT, NO new FOCAL DEFICITS PSY: CALM - Constitutional Vitals: Temp Pulse Resp BP Pulse Ox 98 F 63 18 179/98 94 07/18/16 12:00 07/18/16 11:24 07/18/16 11:20 07/18/16 11:24 07/18/16 11:20 Results - Labs CBC & Chem 7: 07/18/16 03:43 07/18/16 03:43 Labs: Laboratory Last Values WBC 6.5 K/mm3 (4.5-11.0) 07/18/16 03:43 RBC 5.97 M/mm3 (3.65-5.03) H 07/18/16 03:43 Hgb 15.2 gm/dl (11.8-15.2) 07/18/16 03:43 Hct 48.1 % (35.5-45.6) H 07/18/16 03:43 MCV 81 fl (84-94) L 07/18/16 03:43 MCH 25 pg (28-32) L 07/18/16 03:43 MCHC 32 % (32-34) 07/18/16 03:43 RDW 16.1 % (13.2-15.2) H 07/18/16 03:43 Plt Count 180 K/mm3 (140-440) 07/18/16 03:43 Lymph % (Auto) 29.0 % (13.4-35.0) 07/18/16 03:43 [place] % (Auto) 6.8 % (0.0-7.3) 07/18/16 03:43 Eos % (Auto) 2.7 % (0.0-4.3) 07/18/16 03:43 Baso % (Auto) 0.7 % (0.0-1.8) 07/18/16 03:43 Lymph # 1.9 K/mm3 (1.2-5.4) 07/18/16 03:43 [place] # 0.4 K/mm3 (0.0-0.8) 07/18/16 03:43 Eos # 0.2 K/mm3 (0.0-0.4) 07/18/16 03:43 Baso # 0.0 K/mm3 (0.0-0.1) 07/18/16 03:43 Seg Neutrophils % 60.8 % (40.0-70.0) 07/18/16 03:43 Seg Neutrophils # 3.9 K/mm3 (1.8-7.7) 07/18/16 03:43 D-Dimer < 135 ng/mlDDU (0-234) 07/17/16 00:22 Sodium 137 mmol/L (137-145) 07/18/16 03:43 Potassium 4.2 mmol/L (3.6-5.0) D 07/18/16 03:43 Chloride 101.5 mmol/L (98-107) 07/18/16 03:43 Carbon Dioxide 23 mmol/L (22-30) 07/18/16 03:43 Anion Gap 17 mmol/L 07/18/16 03:43 BUN 11 mg/dL (9-20) 07/18/16 03:43 Creatinine 0.9 mg/dL (0.8-1.5) 07/18/16 03:43 Estimated GFR > 60 ml/min 07/18/16 03:43 BUN/Creatinine Ratio 12.22 % 07/18/16 03:43 Glucose 93 mg/dL (75-100) 07/18/16 03:43 Calcium 8.7 mg/dL (8.4-10.2) 07/18/16 03:43 Phosphorus 3.2 mg/dL (2.5-4.5) 07/17/16 21:24 Magnesium 2.0 mg/dL (1.7-2.3) 07/18/16 03:43 Total Bilirubin 0.2 mg/dL (0.1-1.2) 07/16/16 21:54 AST 23 units/L (5-40) 07/16/16 21:54 ALT 26 units/L (7-56) 07/16/16 21:54 Alkaline Phosphatase 79 units/L (35-129) 07/16/16 21:54 Total Creatine Kinase 193 units/L (55-170) H 07/17/16 05:20 CK-MB (CK-2) 3.6 ng/mL (0.0-4.0) 07/17/16 05:20 CK-MB (CK-2) Rel Index 1.8 (0-4) 07/17/16 05:20 Troponin T < 0.010 ng/mL (0.00-0.029) 07/17/16 05:20 Total Protein 7.7 g/dL (6.3-8.2) 07/16/16 21:54 Albumin 4.0 g/dL (3.9-5) 07/16/16 21:54 Albumin/Globulin Ratio 1.1 % 07/16/16 21:54 Triglycerides 189 mg/dL (2-149) H 07/18/16 03:43 Cholesterol 147 mg/dL (50-199) 07/18/16 03:43 LDL Cholesterol Direct 83 mg/dL (50-130) 07/18/16 03:43 HDL Cholesterol 27 mg/dL (40-59) L 07/18/16 03:43 Cholesterol/HDL Ratio 5.44 % 07/18/16 03:43 Plasma/Serum Alcohol 0.11 gm% (0-0.07) H 07/16/16 21:54 - Imaging and Cardiology Chest x-ray: report reviewed
--- NOTE | 2016-07-18 13:49 | Discharge Summary ---
Providers - Providers Date of Admission: 07/16/16 23:54 Attending physician: WES CARLSON 07/16/16 23:59 Consult to Physician [CONS] Routine Consulting Provider: BREEZY NGUYỄN Reason For Exam: syncope Place consult to:: Dr. Nguyễn Notified:: Tanya RN Phone number called:: Was contact made?: Yes If yes, spoke with:: [place] service Time called:: 08:03 07/17/16 14:58 Consult to Physician [CONS] Routine Consulting Provider: BRIDGETTE SYED Reason For Exam: Hypertensive urgency Place consult to:: YAHAIRA Notified:: YES Primary care physician: SENIOR RADIATION THERAPIST Hospitalization Condition: Stable Hospital course: Patient is a 60 year old man with a history of hypertension who presents to [facility] emergency room because of the syncopal episode associated with drinking alcohol. It's unclear how long it lasted for. Per the emergency room physician, the brother states that the patient had some jerking movements. Patient was noted to have elevated BP and not responding despite multiple treatment for BP requiring transfer to ICU on Cardene drip. Hypertensive emergency Alcohol abuse Alcohol withdrawal syndrome Hypokalemia Microcytosis Plan: Transfer to ICU for cardene drip, now off, bp stable start CIWA protocol Replaced electrolytes seizure precautions DVT/GI prophylaxis Extensive counselling provided for etoh cessation Intensivit consulted Disposition: stress test today and if negative, will discharge. Disposition: DISCHARGED TO HOME OR SELFCARE Time spent for discharge: 32 minutes Core Measure Documentation - Palliative Care Palliative Care/ Comfort Measures: Not Applicable - Core Measures Any of the following diagnoses?: none - VTE Discharge Requirements Deep Vein Thrombosis/Pulmonary Embolism Present on Admission: No Has pt received <5 days of overlap therapy or INR<2.0: No Anticoagulant overlap therapy prescribed at discharge: No Contraindication No Overlap Therapy order at DC: Not Indicated Exam - Physical Exam Narrative exam: GEN: WDWN, NAD, AWAKE, ALERT, ORIENTATED 3 HEENT: NCAT, PERRL, EOMI, OP CLEAR NECK: SUPPLE, NO THYROMEGALY, NO JVD, NO LAD CVS: RRR, NORMAL S1S2 LUNGS/CHEST: CTA B, NORMAL CHEST EXPANSION B, GOOD AIR ENTRY B ABD: SOFT NTND, GBS, NO REBOUND OR GUARDING EXT/SKIN: NO SIGNIFICANT EDEMA OR RASH MSK: FROM X 4 EXTREMITIES, significant contractures of his hands bilaterally, arthritis NEURO: CN 2-12 GROSSLY INTACT, NO new FOCAL DEFICITS PSY: CALM - Constitutional Vitals: Temp Pulse Resp BP Pulse Ox 98 F 63 18 179/98 94 07/18/16 12:00 07/18/16 11:24 07/18/16 11:20 07/18/16 11:24 07/18/16 11:20 Plan Activity: no driving until cleared by PCP, fall precautions (no strenous activites until cleared by PCP. ) Diet: low salt Follow up with: KYAW NGUYỄN MD [Staff Physician] - 7 Days PRIMARY CARE, [Primary Care Provider] - 3-5 Days MEGHNA LARSEN MD [Staff Physician] - 7 Days Prescriptions: Folic Acid [Folvite] 1 mg PO DAILY #30 tablet hydrALAZINE [Apresoline TAB] 50 mg PO BID #60 tablet Metoprolol [Lopressor TAB] 25 mg PO BID #30 tablet Multivitamin Tab [Multiple Vitamin TAB (Theragran)] 1 each PO DAILY #30 tablet Thiamine [Vitamin B-1] 100 mg PO QDAY #30 tablet
[2016-07-18] MEDS: APRESOLINE PO SCH (21:33)
[2016-07-19 05:56] LABS: Anion Gap 21 mmol/L; Blood Urea Nitrogen 18 mg/dL (9-20); Calcium 8.8 mg/dL (8.4-10.2); Carbon Dioxide 21 mmol/L (22-30); Chloride 101.5 mmol/L (98-107); Glucose 99 mg/dL (75-100); Potassium 4.1 mmol/L (3.6-5.0); Sodium 139 mmol/L (137-145)
--- NOTE | 2016-07-19 09:03 | Progress Note ---
Assessment and Plan Assessment and plan: Patient is a 60 year old man with a history of hypertension who presents to [facility] emergency room because of the syncopal episode associated with drinking alcohol. It's unclear how long it lasted for. Per the emergency room physician, the brother states that the patient had some jerking movements. Patient was noted to have elevated BP and not responding despite multiple treatment for BP requiring transfer to ICU on Cardene drip. Hypertensive emergency Alcohol abuse Alcohol withdrawal syndrome Hypokalemia Microcytosis Plan: Transfer to ICU for cardene drip, now off, bp stable start CIWA protocol Replaced electrolytes seizure precautions DVT/GI prophylaxis Extensive counselling provided for etoh cessation Intensivit consulted Disposition: stress test today and if negative, will discharge. History Interval history: Patient seen and examined. Follow up on hypertension which is improved. Currently off Cardene drip in ICU we'll transfer. Overnight uneventful. No cp, sob, n/v or severe headaches. Imaging, old records, testing, labs, nursing notes reviewed. Plan discussed with patient. Hospitalist Physical - Physical exam Narrative exam: GEN: WDWN, NAD, AWAKE, ALERT, ORIENTATED 3 HEENT: NCAT, PERRL, EOMI, OP CLEAR NECK: SUPPLE, NO THYROMEGALY, NO JVD, NO LAD CVS: RRR, NORMAL S1S2 LUNGS/CHEST: CTA B, NORMAL CHEST EXPANSION B, GOOD AIR ENTRY B ABD: SOFT NTND, GBS, NO REBOUND OR GUARDING EXT/SKIN: NO SIGNIFICANT EDEMA OR RASH MSK: FROM X 4 EXTREMITIES, significant contractures of his hands bilaterally, arthritis NEURO: CN 2-12 GROSSLY INTACT, NO new FOCAL DEFICITS PSY: CALM - Constitutional Vitals: Temp Pulse Resp BP Pulse Ox 98.5 F 65 20 132/69 96 07/19/16 05:34 07/19/16 05:34 07/19/16 05:34 07/19/16 05:34 07/19/16 05:34 Results - Labs CBC & Chem 7: 07/18/16 03:43 07/19/16 04:56 Labs: Laboratory Last Values WBC 6.5 K/mm3 (4.5-11.0) 07/18/16 03:43 RBC 5.97 M/mm3 (3.65-5.03) H 07/18/16 03:43 Hgb 15.2 gm/dl (11.8-15.2) 07/18/16 03:43 Hct 48.1 % (35.5-45.6) H 07/18/16 03:43 MCV 81 fl (84-94) L 07/18/16 03:43 MCH 25 pg (28-32) L 07/18/16 03:43 MCHC 32 % (32-34) 07/18/16 03:43 RDW 16.1 % (13.2-15.2) H 07/18/16 03:43 Plt Count 180 K/mm3 (140-440) 07/18/16 03:43 Lymph % (Auto) 29.0 % (13.4-35.0) 07/18/16 03:43 Teller % (Auto) 6.8 % (0.0-7.3) 07/18/16 03:43 Eos % (Auto) 2.7 % (0.0-4.3) 07/18/16 03:43 Baso % (Auto) 0.7 % (0.0-1.8) 07/18/16 03:43 Lymph # 1.9 K/mm3 (1.2-5.4) 07/18/16 03:43 Teller # 0.4 K/mm3 (0.0-0.8) 07/18/16 03:43 Eos # 0.2 K/mm3 (0.0-0.4) 07/18/16 03:43 Baso # 0.0 K/mm3 (0.0-0.1) 07/18/16 03:43 Seg Neutrophils % 60.8 % (40.0-70.0) 07/18/16 03:43 Seg Neutrophils # 3.9 K/mm3 (1.8-7.7) 07/18/16 03:43 D-Dimer < 135 ng/mlDDU (0-234) 07/17/16 00:22 Sodium 139 mmol/L (137-145) 07/19/16 04:56 Potassium 4.1 mmol/L (3.6-5.0) 07/19/16 04:56 Chloride 101.5 mmol/L (98-107) 07/19/16 04:56 Carbon Dioxide 21 mmol/L (22-30) L 07/19/16 04:56 Anion Gap 21 mmol/L 07/19/16 04:56 BUN 18 mg/dL (9-20) 07/19/16 04:56 Creatinine 1.2 mg/dL (0.8-1.5) 07/19/16 04:56 Estimated GFR > 60 ml/min 07/19/16 04:56 BUN/Creatinine Ratio 15.00 % 07/19/16 04:56 Glucose 99 mg/dL (75-100) 07/19/16 04:56 Calcium 8.8 mg/dL (8.4-10.2) 07/19/16 04:56 Phosphorus 3.2 mg/dL (2.5-4.5) 07/17/16 21:24 Magnesium 2.0 mg/dL (1.7-2.3) 07/18/16 03:43 Total Bilirubin 0.2 mg/dL (0.1-1.2) 07/16/16 21:54 AST 23 units/L (5-40) 07/16/16 21:54 ALT 26 units/L (7-56) 07/16/16 21:54 Alkaline Phosphatase 79 units/L (35-129) 07/16/16 21:54 Total Creatine Kinase 193 units/L (55-170) H 07/17/16 05:20 CK-MB (CK-2) 3.6 ng/mL (0.0-4.0) 07/17/16 05:20 CK-MB (CK-2) Rel Index 1.8 (0-4) 07/17/16 05:20 Troponin T < 0.010 ng/mL (0.00-0.029) 07/17/16 05:20 Total Protein 7.7 g/dL (6.3-8.2) 07/16/16 21:54 Albumin 4.0 g/dL (3.9-5) 07/16/16 21:54 Albumin/Globulin Ratio 1.1 % 07/16/16 21:54 Triglycerides 189 mg/dL (2-149) H 07/18/16 03:43 Cholesterol 147 mg/dL (50-199) 07/18/16 03:43 LDL Cholesterol Direct 83 mg/dL (50-130) 07/18/16 03:43 HDL Cholesterol 27 mg/dL (40-59) L 07/18/16 03:43 Cholesterol/HDL Ratio 5.44 % 07/18/16 03:43 Plasma/Serum Alcohol 0.11 gm% (0-0.07) H 07/16/16 21:54
[2016-07-19] MEDS ORDERED: LEXISCAN IV ONE ×2 (09:31→09:36)
--- NOTE | 2016-07-19 11:04 | Progress Note ---
Assessment and Plan Assessment: Syncope v. seizure HTN - improving. Abnormal EKG / acute pericarditis - pt denies chest pain, troponins negative for AMI x 3 sets. CKD Tobacco use / ETOH use - cessation encouraged. Plan: Echo reviewed - mild LVH, EF 45-50%, impaired relaxation, trace AR, trace MR. Cont current medical management. Proceed with stress test this AM. Await findings. The patient has been seen in conjunction with Dr. Margaret Greene who agrees with the assessment and plan of care. Subjective Date of service: 07/19/16 Principal diagnosis: syncope Interval history: Pt seen in stress lab, resting comfortably in bed, no complaints. VSS. Objective Last Vital Signs Temp 98.5 F 07/19/16 05:34 Pulse 83 07/19/16 10:05 Resp 20 07/19/16 05:34 BP 156/80 07/19/16 10:05 Pulse Ox 96 07/19/16 05:34 - Physical Examination General: Appears Well, No Apparent Distress HEENT: Positive: PERRL, Normocephaly, Mucus Membranes Moist Neck: Positive: neck supple, trachea midline Cardiac: Positive: Reg Rate and Rhythm, S1/S2 Lungs: Positive: Normal Exam, clear to auscultation, Normal Breath Sounds Neuro: Positive: Grossly Intact, Cranial Nerve 2-12 Intact Abdomen: Positive: Unremarkable, Soft, Active Bowel Sounds. Negative: Tender Skin: Positive: Clear. Negative: Rash, Wound Musculoskeletal: No Fluid Collection, No Pain, Normal Range of Motion Extremities: Present: normal, upper extr. pulses, lower extr. pulses. Absent: edema - Labs and Meds Comprehensive Metabolic Panel 07/19/16 Range/Units 04:56 Sodium 139 (137-145) mmol/L Potassium 4.1 (3.6-5.0) mmol/L Chloride 101.5 (98-107) mmol/L Carbon Dioxide 21 L (22-30) mmol/L BUN 18 (9-20) mg/dL Creatinine 1.2 (0.8-1.5) mg/dL Glucose 99 (75-100) mg/dL Calcium 8.8 (8.4-10.2) mg/dL - Imaging and Cardiology EKG: image reviewed Nuclear stress test: pending - Telemetry EKG Rhythm: Sinus Rhythm - Allied health notes Allied health notes reviewed: nursing
[2016-07-19] MEDS: VITAMIN B-1 PO SCH (12:13)
[2016-07-19] MEDS: PEPCID PO SCH (12:13)
[2016-07-19] MEDS: FOLVITE PO SCH (12:13)
[2016-07-19] MEDS: THERAGRAN Tab PO SCH (12:13)
[2016-07-19] MEDS: LOVENOX SUB-Q SCH (12:13)
[2016-07-19] MEDS: COREG PO SCH (12:13)
[2016-07-19] MEDS: APRESOLINE PO SCH (12:13)
--- NOTE | 2016-07-19 14:09 | Event Note ---
Date: 07/19/16 Stress test this AM negative for ischemia, EF 35%. Full report to follow. Will consider addition of ACEI/ARB as OP. Currently stable cardiac status. Pt may discharge home from cardiology standpoint. Follow up in our [place] office with Dr. Vides on 08/10/2016 @ 1:15PM. Edenilson THOMPSON NP / DR. Margaret NGUYỄN
[2016-07-19 14:23] VITALS: BP 144/83
--- NOTE | 2016-07-20 23:01 | Treadmill Report ---
NUCLEAR PERFUSION SCAN REFERRING PHYSICIAN: Hospitalist service. PROTOCOL: The patient was brought to the stress lab in a postabsorptive state, underwent rest imaging with 10 mCi of technetium 99m. Shortly thereafter, the patient underwent Lexiscan stress test. At peak stress, the patient was given 26 mCi of technetium 99m. Shortly thereafter, the patient underwent stress imaging. Interpretation of raw imaging reveals mild GI artifact. No significant motion artifact. SPECT imaging examined carefully in the horizontal long axis, vertical long axis, and short axis views. There is normal homogenous uptake of radioisotope in all reported segments. No evidence of significant fixed or reversible perfusion defects suggestive of prior infarction or ischemia, by visual assessment estimated ejection fraction is 40-45%. No TID. CONCLUSIONS: 1. Normal myocardial perfusion scan without evidence of active ischemia or prior infarction. 2. Gated wall motion reveals mild left ventricular hypokinesis with an estimated ejection fraction of 40-45%. No evidence of transient ischemic dilatation or stress-induced segmental wall motion abnormalities. JOB# [id number] BRIONNA/CELIA
== END 2016-07-19 16:13 | disposition home or self-care (01) | DRG 897 ==
LOC: ED 21:30 → 4A 23:54 → CC1 07-17 16:32 → 4A 07-18 16:38
PROVIDERS: ADMIT Internal Medicine; ATTEND Internal Medicine
DX: F10.239 Alcohol dependence with withdrawal, unspecified (principal); I16.1 Hypertensive emergency; I31.9 Disease of pericardium, unspecified; Z82.49 Family history of ischemic heart disease and other diseases of the circulatory system; G40.909 Epilepsy, unspecified, not intractable, without status epilepticus; I16.0 Hypertensive urgency; R94.31 Abnormal electrocardiogram [ECG] [EKG]; Z91.19 Patient's noncompliance with other medical treatment and regimen; N18.9 Chronic kidney disease, unspecified; I12.9 Hypertensive chronic kidney disease with stage 1 through stage 4 chronic kidney disease, or unspecified chronic kidney disease; E87.6 Hypokalemia; F17.210 Nicotine dependence, cigarettes, uncomplicated; Z71.6 Tobacco abuse counseling; Z69 Encounter for mental health services for victim and perpetrator of abuse; Y90.0 Blood alcohol level of less than 20 mg/100 ml
CPT/HCPCS: 36415; 71010; 78452; 80048; 80053; 80061; 80320; 82550; 82553; 83735; 84100; 84484; 85025; 85379; 93005; 93010; 93017; 93306; 99285; A9502; G0480; J0360; J1650; J2785; J3411; J7030